=== PATIENT | male | born 1960 | race Hispanic/Latino ===

== ENCOUNTER 2024-08-09 13:00 | Inpatient (IN) | payer OTHER ==
[~2024-08-09] VITALS: Ht 188 cm; Wt 128.7 kg
--- NOTE | 2024-08-09 09:35 | EKG ---
[facility] Test Date: 2024-08-09 Test Time: 09:30:55 Pat Name: RENETTA PARIS Department: Patient [place]: [id number] Room: Gender: M Iv Technician: [id number] : 1960 Requested By: ANIKA PAYNE Order Number: [id number] Reading MD: Isaac Naqvi Measurements Intervals Bouton Rate: 69 P: 58 SC: 152 QRS: 62 QRSD: 81 T: -10 QT: 394 QTc: 422 Interpretive Statements Sinus rhythm No previous ECG available for comparison Electronically Signed On 08-11-2024 14:40:05 CDT by Isaac Naqvi Please click the below link to view image of tracing.
[2024-08-09 09:36] VITALS: BP 182/88; PULSE 68; RESP 17; TEMP 97.8
[2024-08-09 09:40] LABS: BASOPHILS # (AUTO) 0.02 K/uL (0.00-0.20); BASOPHILS % (AUTO) 0.3 % (0.0-5.0); EOSINOPHILS # (AUTO) 0.34 K/uL (0.00-0.70); HEMATOCRIT 41.3 % (42-54); IMMATURE GRANULOCYTE ABSOLUTE 0.02 K/uL (0-1); MEAN CORPUSCULAR HEMOGLOBIN 28.2 pg (27.0-33.0); MEAN CORPUSCULAR VOLUME 88.2 fL (79-99); MONOCYTES # (AUTO) 0.5 K/uL (0.1-1.0); MONOCYTES % (AUTO) 6.8 % (3.0-13.0); NEUTROPHILS # (AUTO) 3.9 K/uL (1.8-7.7); NEUTROPHILS % (AUTO) 57.6 % (40.0-77.0); PLATELET COUNT (AUTO) 189 K/uL (130-400); RED BLOOD CELL COUNT(AUTO) 4.68 MIL/uL (4.50-6.20); RED CELL DISTRIBUTION WIDTH 14.6 % (11.0-15.5); WHITE BLOOD COUNT (AUTO) 6.7 K/uL (4.8-10.8)
[2024-08-09 09:49] LABS: INR 0.98 (0.85-1.15); PROTHROMBIN TIME 10.4 SEC (9.6-11.6)
[2024-08-09 09:50] LABS: PARTIAL THROMBOPLASTIN TIME 28.5 SEC (26.3-35.5)
[2024-08-09 09:51] LABS: ALBUMIN 3.3 g/dL (3.5-5.0); BILIRUBIN,TOTAL 0.3 mg/dL (0.2-1.0); CREATININE 1.4 mg/dL (0.5-1.3); POTASSIUM 4.2 mmol/L (3.5-5.1)
[~2024-08-09 13:00] MED LIST: LABE200T7 PO; LEVO100C5 PO; LEVO5TAB13 PO; LOSA100T59 PO
[2024-08-14] VITALS (27 sets, daily range): BP systolic 142–195; BP diastolic 61–104; PULSE 68–88; RESP 15–19; TEMP 97.1–98.7; O2SAT 97
[2024-08-14] MEDS ORDERED: BUPIvacaine/PF 0.25% 30ML VIAL IJ ONE (08:00)
[2024-08-14] MEDS ORDERED: LIDOCAINE 1%-EPI 1:100,000 20 ML VIAL ONE (08:00)
[2024-08-14] MEDS: LACTATED RINGERS 1000ML 1,000 ML IV ONE (09:18)
[2024-08-14] MEDS: INVANZ 1GM+NS 50ML IVPB 50 ML IV ONE (09:19)
[2024-08-14] MEDS ORDERED: MIDAZOLAM HCL 1 MG/ML 2ML VIAL ONE (10:27)
[2024-08-14] MEDS ORDERED: LIDOCAINE PF 100MG/5ML (2%) SYRINGE 5ML ONE (10:29)
[2024-08-14] MEDS ORDERED: rocuRONium bROMide 10MG/1ML 5ML VL ONE ×4 (10:30→15:08)
[2024-08-14] MEDS ORDERED: proPOFol 10 MG/ML 20ML VIAL IV ONE (10:30)
[2024-08-14] MEDS ORDERED: ePHEDrine SULFate 50 MG/ML AMPULE ONE (11:09)
[2024-08-14] MEDS ORDERED: FENTanyl CITRate PF 50 MCG/1 ML 5ML AMP IV ONE (11:26)
[2024-08-14] MEDS: BUPIvacaine/PF 0.25% 30ML VIAL IJ ONE (11:29)
[2024-08-14] MEDS ORDERED: ketaMINE 50MG/ML SYRINGE 50 MG/ML DISP.SYRIN ONE (13:31)
[2024-08-14] MEDS: INDOCYANINE GREEN 25 MG VIAL IJ ONE (13:37)
[2024-08-14] MEDS: acetaMINOPHEN 100 ML ONE (13:37)
[2024-08-14] MEDS ORDERED: ondanSETRON 4MG INJ ONE ×2 (13:40→15:58)
[2024-08-14] MEDS ORDERED: dexaMETHasone SOD PHOSPHATE 10MG/ML 1ML VIAL ONE (13:40)
[2024-08-14] MEDS: SUGAMMADEX SODIUM 200 MG/2 ML VIAL IV ONE (16:01)
[2024-08-14] MEDS ORDERED: NEOSTIGMINE METHYLSULFATE 1MG/ML IV ONE (16:21)
[2024-08-14] MEDS ORDERED: GLYCOPYRROLATE 0.2 MG/ML 5 ML VIAL ONE (16:21)
--- NOTE | 2024-08-14 16:40 | OP ---
Operative Note: DATE OF PROCEDURE: 08/14/24 SURGEON: ANIKA PAYNE MD ACID PATROLLER: [None] ANESTHESIA: [General endotracheal anesthesia] ANESTHESIOLOGIST/TEST FIXTURE ASSEMBLER: [] PREOPERATIVE DIAGNOSIS: [Rectal cancer] POSTOPERATIVE DIAGNOSIS: [Rectal cancer] SYNOPSIS: [No metastatic disease. Appropriate mesorectal excision. Mass in upper rectum. Extensive adhesions of small bowel to anterior abdominal wall mesh.] PROCEDURE: [Robotic low anterior resection. Robotic small bowel resection with anastomosis. Robotic suture enterotomy repair of serosal enterotomy. Creation of omental flap. Intraoperative flexible sigmoidoscopy. Placement of amnion graft.] ESTIMATED BLOOD LOSS: [30 mL] INDICATIONS: [The patient is a very pleasant 64-year-old male presents to the office with a upper rectal cancer. He and his family were offered operative management. The complications, risks alternatives and benefits were discussed with the patient and family. Risks include infection, bleeding, injury to surrounding structures, need for further surgery, leak from anastomosis, need for stoma, poor bowel function, injury to the ureters, need for further procedures, and recurrence of disease. All questions were answered to their satisfaction and they all wished to proceed with the operation.] DESCRIPTION OF PROCEDURE: [The patient was brought to the operating theater and placed supine on the operating table. After appropriate general endotracheal anesthesia was administered and IV antibiotics given the patient was placed in the low lithotomy position. The abdomen was prepped and draped in appropriate sterile surgical fashion. Local anesthetic was injected in the Veress needle was used to insufflate the abdomen. Optiview technique was used into the abdomen without any injury to surrounding structures. The abdomen was explored and there was no evidence of metastatic disease. The patient had small bowel densely adhered to the umbilicus where there was mesh placed. This was lysed sharply with scissors. Four other trocars were then placed under direct visualization. An extraction site was placed in the suprapubic area. This was a Pfannenstiel incision. The wound protractor was placed. The robot was docked in the usual sterile fashion. Attention was then drawn to the small bowel where there was a serosal enterotomy which was repaired with 3-0 Vicryl suture. There was another segment of small bowel which was also noted to have serosal defects. There was also full- thickness defects. Given this this segment of small bowel was resected. The small bowel was resected where the small bowel was transected on either side of the defects using a robotic stapler and the mesentery was ligated with the vessel sealer the specimen was removed from the peritoneal cavity. A addh-us-oeuy anastomosis was created using a robotic 60 mm stapler. The entero enterotomy was closed with the V lock suture in 2 layers. This was a 3-0 V lock absorbable suture. Please note that this serosal defects and full-thickness defects were not complications but rather inherent to the dense adhesions that were lysed. This was an unavoidable process given the dense adhesions of the small bowel to the prior lead placed mesh. Attention was then drawn to the left colon was mobilized along the white line of Toldt. The left ureter was identified and preserved. The hypogastric nerve was preserved. The superior hemorrhoidal vessels were isolated and ligated. The presacral space was entered and I said dissection was taken down to the pelvic floor. The tumor was identified by the tattoo. The tumor was in the upper rectum. The mesorectum surrounding the mid rectum was dissected and a space was created for a stapler. Once this was done the stapler was utilized to amputate the rectum. This was at the mid rectum. The specimen was then amputated at the upper aspect and a side-to-end anastomosis was created using a EEA 29 stapler. The anastomosis was tested with a significant amount of pressure without any evidence of leak. An amniotic graft was placed at the anastomosis. The flexible sigmoidoscope was inserted and the anastomosis was viable and without any evidence of bleeding. There was also no leak. Firefly was utilized to assure good blood flow to the anastomosis at the time of transection as well as the time of anastomosis. A omental flap was created and placed in the pelvis. Excellent hemostasis was achieved. There were no complications. The abdomen was copiously irrigated with sterile water with the return of clear fluid. The fascia at the Pfannenstiel incision was closed with 1. PDS in a running fashion. The 12 mm trocar site was closed with 0 Vicryl. Skin incisions were closed with Monocryl. Excellent hemostasis was achieved. There were no complications. The instrument, sponge and needle count reported as correct x2 by nursing staff. All the above was discussed with family.] ANIKA PAYNE MD Aug 14, 2024 16:40
[2024-08-14] MEDS ORDERED: HYDROcodone/APAP 5/325 1 TAB TABLET PO PRN (17:00)
[2024-08-14] MEDS ORDERED: acetaMINOPHEN 325 MG TAB PO PRN (17:00)
[2024-08-14] MEDS ORDERED: ondanSETRON 4MG INJ IVP PRN (17:00)
[2024-08-14] MEDS ORDERED: INSULIN humuLIN R 100 UNIT/ML 3ML SQ PRN (17:00)
[2024-08-14] MEDS: FENTanyl CITRate PF 50 MCG/1 ML 2ML VIAL ONE (17:00)
--- NOTE | 2024-08-14 18:20 | NUR ---
ARRIVED TO UNIT PT ARRIVED FROM THE OR. PULSES STRONG BLE & BUE. LR HANGED @ 75MLS/HR PER ORDERS. SARAH ON LATERAL L SIDE SECURED WITH DRESSING AND TAPE. 50 MLS OUTPUT NOTED & DRAINED. 5 INCISIONS OPEN TO AIR ON MID ABDOMEN AREA. NO DRAINAGE NOTED. SCDS PLACED. RT IN ROOM PROVIDED IS TEACHING. 1000 READING ON IS.
[2024-08-14] MEDS: LACTATED RINGERS 1000ML 1,000 ML IV SCH (18:46)
[2024-08-14] MEDS: LoSARTan 100 MG TABLET PO SCH (19:49)
[2024-08-14] MEDS: FAMOTIDINE 20MG VIAL IV SCH (19:49)
[2024-08-14] MEDS: morPHINE 4 MG SYG IV PRN (19:50)
--- NOTE | 2024-08-14 20:10 | HP ---
[facility] HISTORY AND PHYSICAL Date of Service: Aug 14, 2024 Time of Service: 19:48 PCP: Silvia Cardona HISTORY OF PRESENT ILLNESS: This is a 64-year-old male with past medical history of hypertension , hypothyroidism and rectal cancer who underwent for status post Robotic low anterior resection. Robotic small bowel resection with anastomosis. Robotic suture enterotomy repair of serosal enterotomy. Creation of omental flap. Intraoperative flexible sigmoidoscopy. Placement of amnion graft performed by Dr.Alberto Mendez today . Seen and examined patient in room 420 awake,alert and coherent,appears comfortable,denies abdominal pain.Patient denies chills,nausea,vomiting,chest pain,palpitation and shortness of breath. was at bedside during my evaluation.No significant event reported per primary nurse at this time. Latest vital signs temperature 98.8, heart rate 86, blood pressure 170/86 saturation 98% on2 L nasal cannula. We will continue to admit patient in medical surgical floor for further medical management. REVIEW OF SYSTEMS CONSTITUTIONAL: Denies fevers, chills, or night sweats. No unintentional weight loss reported. NEUROLOGICAL: Denies headache, amaurosis fugax, motor weakness, sensory deficit, vertigo/spinning sensation, gait abnormalities, or tremors. ENT: No hearing loss, otalgia, otorrhea, rhinitis, rhinorrhea, hoarseness, or sore throat. CARDIOVASCULAR: Denies any exertional angina, dyspnea on exertion, orthopnea, paroxysmal nocturnal dyspnea, palpitations, life-threatening arrhythmias, claudication. PULMONARY: Denies any shortness of breath, cough, phlegm/sputum, hemoptysis, pleuritic chest pain. SLEEP: Denies morning headaches, daytime somnolence or napping. Denies difficulty falling asleep, staying asleep, waking from sleep. Denies knowledge of snoring. GASTROINTESTINAL: Denies any type of dysphagia to either liquids or solids. Denies nausea, vomiting, pyrosis, early satiety, abdominal pain, diarrhea, constipation, or changes in stool consistency or caliber. Denies coffee-ground emesis, hematemesis, hematochezia, or melanotic stools. GENITOURINARY: Denies frequency, urgency, nocturia, hematuria or incontinence (Storage/Irritative symptoms.) Low urinary stream, straining to void, urinary intermittency or hesitancy, splitting of the voiding stream, terminal dribbling. ENDOCRINOLOGIC: Denies polyuria, polydipsia, polyphagia or heat/cold intolerances. HEMATOLOGIC: Denies thrombophilia/previous clots, or coagulopathy/bleeding disorders. ONCOLOGIC: Denies personal history of malignancy. DERMATOLOGIC: Denies rashes or pruritus. PSYCHIATRIC: Denies any suicidal or homicidal ideation. Denies hallucinations. PAST MEDICAL HISTORY: [ Hypertension, hypothyroidism and rectal cancer ] PAST SURGICAL HISTORY: [Hernia repair, ear surgery, colonoscopy lower endoscopic ultrasound with flex sigmoid 07/25/2024 ] PAST SOCIAL HISTORY: [ Patient lives with . Patient denies alcohol tobacco and recreational drug use ] FAMILY HISTORY: [ Stroke and Alzheimer's disease, ] Coded Allergies: No Known Drug Allergies (Unverified Allergy, Unknown, 08/09/24) PHYSICAL EXAM GENERAL APPEARANCE: The patient is awake, alert, and oriented, in no acute cardiopulmonary distress. NEUROLOGICAL: Cranial nerves II-XII grossly intact. Motor is 5/5 in bilateral upper and lower extremities proximal to distal. No sensory deficits. HEENT: Face is symmetric. Pupils are equal and reactive. Extraocular movements are intact. NECK: Supple. No JVD. No thyromegaly. No submental, submandibular, pre-/postau ricular, occipital or supraclavicular lymphadenopathy. CHEST: Normal chest expansion. No Telemetry. LUNGS: Absence of any rales, rhonchi or any wheezing. CARDIOVASCULAR: Regular. S1 and S2 normal. No appreciable rubs, murmurs or gallops. ABDOMEN: Left SARAH Soft, nontender, and nondistended. There is no rebound, voluntary guarding, or rigidity. : Deferred. Calle EXTREMITIES: Non-edematous and. not cyanotic. No clubbing. Good capillary refill. SKIN: No skin breakdown. Vital Sign (Last 24 Hours) 08/14/24 08/14/24 18:00 18:45 Temp 98.8 Pulse 86 Resp 16 B/P (MAP) 170/86 Pulse Ox 98 O2 Delivery Nasal Cannula O2 Flow Rate 2.0 FiO2 24 LABS: Current Medications Medications (Trade) Dose Ordered Sig/Garrick Route PRN Reason Start Time Stop Time Status Last Admin Dose Admin Acetaminophen (TYLenol 325MG TAB) 650 mg Q4H PRN PO TEMPERATURE GREATER THAN 101 08/14/24 17:00 7/18/25 16:59 Acetaminophen/ Hydrocodone Bitart (NORco 5/325MG) 1 tab Q4H PRN PO MODERATE PAIN (4-6) 08/14/24 17:00 08/19/24 16:59 Enoxaparin Sodium (Lovenox) 40 mg DAILY SQ 08/15/24 09:00 09/14/24 08:59 Famotidine (Pepcid 20mg Vial) 20 mg BID IV 08/14/24 21:00 09/13/24 20:59 Home Med (Home Medication) (Levocetirizine Dihydrochloride 5 MG) HS PO 08/14/24 21:00 09/13/24 20:59 Insulin Human Regular (humuLIN R 100 UNIT/ML 3ML) AD PRN SQ SLIDING SCALE COVERAGE 08/14/24 17:00 09/13/24 16:59 Lactated Ringer's 1,000 ml @ 75 mls/hr [id number] IV 08/14/24 17:00 09/13/24 16:59 08/14/24 18:46 75 MLS/HR Levothyroxine Sodium (SYNTHroid 100MCG TAB) 100 mcg SYN PO 08/15/24 06:30 09/14/24 06:29 Losartan Potassium (CozAAR 100MG TAB) 100 mg HS PO 08/14/24 21:00 09/13/24 20:59 Morphine Sulfate (morPHINE 4MG SYG) 4 mg Q3H PRN IV SEVERE PAIN (7-10) 08/14/24 17:00 08/21/24 16:59 Ondansetron HCl (zoFRAN 4MG INJ) 4 mg Q4H PRN IVP NAUSEA 08/14/24 17:00 09/13/24 16:59 DIAGNOSTICS / RADIOLOGY: [ ] ASSESSMENT: Rectal cancer status post robotic small bowel resection with anastomosis and creation of omental flap POA Uncontrolled hypertension POA Hypothyroidism POA Morbid obesity POA Acute normocytic normochromic anemia POA Acute kidney injury POA PLAN: We will admit patient in medical surgical floor Patient started on clear liquid per general surgeon recommendation We will continue LR at 75 ml / hr and re evaluate We will start on Famotidine 20 mg IV bid for GI prophylaxis We will continue Lovenox 40 mg subQ daily per surgeon's recommendation for DVT prophylaxis We will replace electrolytes as needed per protocol We will start on insulin sliding scale AC & HS with hypoglycemia protocol We will add prn medication for fever,pain,cough , nausea, vomiting and elevated blood pressure Home meds already reconciled Encourage spent incentive spirometry Q hour times 10 while awake May continue oxygen supplementation to keep saturation above 92% We will request labs in am Further orders to follow depending on above results Case discussed with attending physician and came up with above treatment and plan of care. ADVANCED CARE PLANNING 1. Which of the following were discussed? Hospice Care - No Therapeutic options - Yes Advance Directives - No Other discussions - 2. Discussed with who? Patient and Alea 3. Voluntary nature of this service was explained to the patient? Yes 4. Amount of time spent - _20 5. Reviewed by Physician? (if this service was performed by NPP) Yes Patient seen and examined by me. Agree with note by POWER PLANT ASSISTANT SEE ADDITIONAL ORDERS PER CHART DISCUSSED WITH NURSING STAFF TRINA CHAND [facility] Aug 14, 2024 20:10
[2024-08-14] MEDS ORDERED: MAGNESIUM 2GM PREMIX 50ML 50 ML IV PRN (20:30)
[2024-08-14] MEDS ORDERED: PoTASSium chl 10% ELIXIR 20MEQ 20 MEQ/15 ML UDCUP PO PRN (20:30)
[2024-08-14] MEDS ORDERED: PoTASSium chloRIDE 20MEQ/100ML 100 ML IV PRN (20:30)
[2024-08-14] MEDS: (Levocetirizine Dihydrochloride 5 MG) PO SCH (21:00)
[2024-08-14] MEDS: hydrALAZine 20MG/ML VIAL IV PRN (23:03)
[2024-08-15] VITALS (8 sets, daily range): BP systolic 153–195; BP diastolic 66–97; PULSE 73–88; RESP 18–20; TEMP 97.4–98.7; O2SAT 98
[2024-08-15 04:38] LABS: BASOPHILS # (AUTO) 0.02 K/uL (0.00-0.20); BASOPHILS % (AUTO) 0.2 % (0.0-5.0); HEMATOCRIT 40.3 % (42-54); IMMATURE GRANULOCYTE ABSOLUTE 0.04 K/uL (0-1); LYMPHOCYTES # (AUTO) 1.3 K/uL (1.0-4.8); LYMPHOCYTES % (AUTO) 10.8 % (21.0-51.0); MEAN CORPUSCULAR HEMOGLOBIN 29.2 pg (27.0-33.0); MEAN CORPUSCULAR HGB CONC 33.7 g/dL (32.0-36.0); MEAN CORPUSCULAR VOLUME 86.5 fL (79-99); MONOCYTES # (AUTO) 0.8 K/uL (0.1-1.0); MONOCYTES % (AUTO) 6.3 % (3.0-13.0); NEUTROPHILS # (AUTO) 10.1 K/uL (1.8-7.7); NEUTROPHILS % (AUTO) 82.4 % (40.0-77.0); PLATELET COUNT (AUTO) 194 K/uL (130-400); RED BLOOD CELL COUNT(AUTO) 4.66 MIL/uL (4.50-6.20); RED CELL DISTRIBUTION WIDTH 14.4 % (11.0-15.5); WHITE BLOOD COUNT (AUTO) 12.3 K/uL (4.8-10.8)
[2024-08-15 04:45] LABS: CREATININE 1.6 mg/dL (0.5-1.3); POTASSIUM 3.9 mmol/L (3.5-5.1)
[2024-08-15 05:02] LABS: HEMOGLOBIN A1C 5.7 % (4.0-6.0)
[2024-08-15] MEDS: levoTHYROxine 100 MCG TABLET PO SCH (06:40)
[2024-08-15] MEDS: ENOXAPARIN SODIUM 40 MG/0.4 ML SYRINGE SQ SCH (09:23)
--- NOTE | 2024-08-15 10:01 | NUR ---
DCP:HOME Pt currently lives with rosina Echeverria [phone] who was at bedside. Pt does not have any insecurities with food, group home, and/or utilities. Pt does not have DME, home health, or provider services at this time. Pt is able to complete ADLs independently. PCP is Dr. Brendan Vega and uses [facility] for any RX needs. At DC pt will want to go home and family can assist with transportation. Addendum: 08/15/24 at 1005 by KADI BENAVIDES SS Amended: Links added.
--- NOTE | 2024-08-15 10:39 | PN ---
[facility] PROGRESS NOTE Date of Service: Aug 15, 2024 Time of Service: 10:34 SUBJECTIVE: This is a 64-year-old male with past medical history of hypertension , hypothyroidism and rectal cancer who underwent Robotic low anterior resection. Robotic small bowel resection with anastomosis. Robotic suture enterotomy repair of serosal enterotomy. Creation of omental flap. Intraoperative f lexible sigmoidoscopy. Placement of amnion graft. Procedure done by Dr.Alberto Mendez . Medical consultation requested. 08/15 patient admitted to the medical floor, patient is sitting comfortably in the chair at the time of my visit, alert oriented x3, denies chest pain, no shortness a breath, no nausea, no vomiting. BP 153/83, afebrile, saturating 98% 2 L nasal cannula, hemoglobin 13.6, hematocrit 40.3, WBC 12.3, BUN 15, creatinine 1.6, patient on IV fluids, pain medication with morphine IV as needed as well as hydrocodone p.o.. Patient remains on clear liquid diet. We will continue to follow surgical input and recommendation. A.m. lab. at bedside, updated. REVIEW OF SYSTEMS CONSTITUTIONAL: Denies fevers, chills, or night sweats. No unintentional weight loss reported. NEUROLOGICAL: Denies headache, amaurosis fugax, motor weakness, sensory deficit, vertigo/spinning sensation, gait abnormalities, or tremors. ENT: No hearing loss, otalgia, otorrhea, rhinitis, rhinorrhea, hoarseness, or sore throat. CARDIOVASCULAR: Denies any exertional angina, dyspnea on exertion, orthopnea, paroxysmal nocturnal dyspnea, palpitations, life-threatening arrhythmias, claudication. PULMONARY: Denies any shortness of breath, cough, phlegm/sputum, hemoptysis, pleuritic chest pain. SLEEP: Denies morning headaches, daytime somnolence or napping. Denies difficulty falling asleep, staying asleep, waking from sleep. Denies knowledge of snoring. GASTROINTESTINAL: Denies any type of dysphagia to either liquids or solids. Denies nausea, vomiting, pyrosis, early satiety, abdominal pain, diarrhea, constipation, or changes in stool consistency or caliber. Denies coffee-ground emesis, hematemesis, hematochezia, or melanotic stools. GENITOURINARY: Denies frequency, urgency, nocturia, hematuria or incontinence (Storage/Irritative symptoms.) Low urinary stream, straining to void, urinary intermittency or hesitancy, splitting of the voiding stream, terminal dribbling. ENDOCRINOLOGIC: Denies polyuria, polydipsia, polyphagia or heat/cold intolerances. HEMATOLOGIC: Denies thrombophilia/previous clots, or coagulopathy/bleeding d isorders. ONCOLOGIC: Denies personal history of malignancy. DERMATOLOGIC: Denies rashes or pruritus. PSYCHIATRIC: Denies any suicidal or homicidal ideation. Denies hallucinations. PHYSICAL EXAM GENERAL APPEARANCE: The patient is awake, alert, and oriented, in no acute cardiopulmonary distress. NEUROLOGICAL: Cranial nerves II-XII grossly intact. Motor is 5/5 in bilateral upper and lower extremities proximal to distal. No sensory deficits. HEENT: Face is symmetric. Pupils are equal and reactive. Extraocular movements are intact. NECK: Supple. No JVD. No thyromegaly. No submental, submandibular, pre- /postauricular, occipital or supraclavicular lymphadenopathy. CHEST: Normal chest expansion. No Telemetry. LUNGS: Absence of any rales, rhonchi or any wheezing. CARDIOVASCULAR: Regular. S1 and S2 normal. No appreciable rubs, murmurs or gallops. ABDOMEN: Left SARAH Soft, nontender, and nondistended. There is no rebound, voluntary guarding, or rigidity. : Deferred. Calle EXTREMITIES: Non-edematous and. not cyanotic. No clubbing. Good capillary refill. SKIN: No skin breakdown. Vital Signs (last 8hr) Date Time Temp Pulse Resp B/P (MAP) Pulse Ox O2 Delivery O2 Flow Rate FiO2 08/15/24 08:00 98.8 81 20 153/83 98 Nasal Cannula 2.0 24 08/15/24 04:40 98 Room Air* 0 21 08/15/24 04:00 97.3 86 20 153/92 98 Nasal Cannula 2.0 LABS: Laboratory: Test 08/15/24 05:21 08/15/24 04:20 Range/Units Whole Blood Glucose 124 H 70-110 MG/DL White Blood Count 12.3 H 4.8-10.8 K/uL Red Blood Count 4.66 4.50-6.20 MIL/uL Hemoglobin 13.6 L 14.0-18.0 g/dL Hematocrit 40.3 L 42-54 % Mean Corpuscular Volume 86.5 79-99 fL Mean Corpuscular Hemoglobin 29.2 27.0-33.0 pg Mean Corpuscular Hemoglobin Concent 33.7 32.0-36.0 g/dL Red Cell Distribution Width 14.4 11.0-15.5 % Platelet Count 194 130-400 K/uL Mean Platelet Volume 9.6 7.5-10.5 fL Immature Granulocyte % (Auto) 0.3 0-1 % Neutrophils (%) (Auto) 82.4 H 40.0-77.0 % Lymphocytes (%) (Auto) 10.8 L 21.0-51.0 % Monocytes (%) (Auto) 6.3 3.0-13.0 % Eosinophils (%) (Auto) 0.0 0.0-8.0 % Basophils (%) (Auto) 0.2 0.0-5.0 % Neutrophils # (Auto) 10.1 H 1.8-7.7 K/uL Lymphocytes # (Auto) 1.3 1.0-4.8 K/uL Monocytes # (Auto) 0.8 0.1-1.0 K/uL Eosinophils # (Auto) 0.00 0.00-0.70 K/uL Basophils # (Auto) 0.02 0.00-0.20 K/uL Absolute Immature Granulocyte (auto 0.04 0-1 K/uL Nucleated Red Blood Cells 0.0 0.0-0.19 % Sodium Level 137 136-145 mmol/L Potassium Level 3.9 3.5-5.1 mmol/L Chloride Level 103 101-111 mmol/L Carbon Dioxide Level 29 21-32 mmol/L Blood Urea Nitrogen 15 7-18 mg/dL Creatinine 1.6 H 0.5-1.3 mg/dL Glomerular Filtration Rate Calc 47 >90 mL/min Random Glucose 135 H 70-105 mg/dL Hemoglobin A1c 5.7 4.0-6.0 % Estimated Average Glucose (eAG) 117 70-126 mg/dL Total Calcium 9.0 8.5-10.1 mg/dL Current Medications Medications (Trade) Dose Ordered Sig/Garrick Route PRN Reason Start Time Stop Time Status Last Admin Dose Admin Acetaminophen (TYLenol 325MG TAB) 650 mg Q4H PRN PO TEMPERATURE GREATER THAN 101 08/14/24 17:00 09/13/24 16:59 Acetaminophen/ Hydrocodone Bitart (NORco 5/325MG) 1 tab Q4H PRN PO MODERATE PAIN (4-6) 08/14/24 17:00 08/19/24 16:59 Enoxaparin Sodium (Lovenox) 40 mg DAILY SQ 08/15/24 09:00 09/14/24 08:59 08/15/24 09:23 40 MG Famotidine (Pepcid 20mg Vial) 20 mg BID IV 08/14/24 21:00 09/13/24 20:59 08/15/24 09:23 20 MG Home Med (Home Medication) (Levocetirizine Dihydrochloride 5 MG) HS PO 08/14/24 21:00 09/13/24 20:59 Hydralazine HCl (APRESOLine 20MG INJ) 10 mg Q6H PRN IV ADMINISTER FOR SBP > 160 08/14/24 20:00 09/13/24 19:59 08/14/24 23:03 10 MG Insulin Human Regular (humuLIN R 100 UNIT/ML 3ML) AD PRN SQ SLIDING SCALE COVERAGE 08/14/24 17:00 09/13/24 16:59 Lactated Ringer's 1,000 ml @ 75 mls/hr [id number] IV 08/14/24 17:00 09/13/24 16:59 08/14/24 18:46 75 MLS/HR Levothyroxine Sodium (SYNTHroid 100MCG TAB) 100 mcg SYN PO 08/15/24 06:30 09/14/24 06:29 08/15/24 06:40 100 MCG Losartan Potassium (CozAAR 100MG TAB) 100 mg HS PO 08/14/24 21:00 09/13/24 20:59 08/14/24 19:49 100 MG Magnesium Sulfate 50 ml @ 0 mls/hr PROTOCOL PRN IV OTHER [SEE ORDER COMMENTS] 08/14/24 20:30 09/13/24 20:29 Morphine Sulfate (morPHINE 4MG SYG) 4 mg Q3H PRN IV SEVERE PAIN (7-10) 08/14/24 17:00 08/21/24 16:59 08/15/24 06:45 4 MG Ondansetron HCl (zoFRAN 4MG INJ) 4 mg Q4H PRN IVP NAUSEA 08/14/24 17:00 09/13/24 16:59 Potassium Chloride 100 ml @ 100 mls/hr AD PRN IV POTASSIUM PROTOCOL 08/14/24 20:30 09/13/24 20:29 Potassium Chloride (K-Dur/Klor-Con 20meq) 20 meq AD PRN PO POTASSIUM PROTOCOL 08/14/24 20:30 09/13/24 20:29 Potassium Chloride (KCl 10% Elixir 20meq/15ml) 20 meq AD PRN PO POTASSIUM PROTOCOL 08/14/24 20:30 09/13/24 20:29 DIAGNOSTICS / RADIOLOGY: [ ] ASSESSMENT: Rectal cancer status post robotic small bowel resection with anastomosis and creation of omental flap POA Uncontrolled hypertension POA Hypothyroidism POA Morbid obesity POA Acute normocytic normochromic anemia POA Acute kidney injury POA PLAN: Remains admitted to the medical floor Patient to continue on clear liquid per general surgeon recommendation Continue supportive care with IV fluid Continue on Famotidine 20 mg IV bid for GI prophylaxis Continue Lovenox 40 mg subQ daily per surgeon's recommendation for DVT prophylaxis We will replace electrolytes as needed per protocol Continue on insulin sliding scale AC & HS with hypoglycemia protocol Continue add prn medication for fever,pain,cough , nausea, vomiting and elevated blood pressure Home meds already reconciled Encourage spent incentive spirometry Q hour times 10 while awake May continue oxygen supplementation to keep saturation above 92% We will request labs in am Further orders to follow depending on above results Plan of action discussed, all questions answered. SIMA MCDOWELL MD Aug 15, 2024 10:39
--- NOTE | 2024-08-15 11:58 | PN ---
[facility] PROGRESS NOTE Date of Visit: Aug 15, 2024 Time of Visit: 11:58 Events / Notes: [ ] Review of Systems: CONSTITUTIONAL: No malaise or change in sensation of wellbeing. ENMT: No rhinorrhea, otorrhea, sinus pain, ear ache. CARDIOVASCULAR: No angina, palpitations, orthopnea or paroxysmal dyspnea. RESPIRATORY: No SOB. GASTROINTESTINAL: No abdominal pain, nausea, vomiting, diarrhea, hematemesis, melena or change in the patient's habitual bowel movements consistency/number. GENITOURINARY: No dysuria, hematuria or change in bladder continence. MUSCULOSKELETAL: No new muscle pain or decrease in muscular strength. No new joint swelling, redness or tenderness. SKIN: No new rash. Physical Exam: GEN: Awake, alert, oriented in person, time and place, and in no acute distress. HEENT: No sinus tenderness. Tympanic membranes were not examined. No rhinorrhea. Oral pharyngeal mucosa is pink, moist and within normal limits. Neck is supple with no cervical lymphadenopathy, thyromegaly or JVD. CHEST: Inspection, palpation and percussion of the chest were unremarkable. Lung auscultation revealed normal breath sounds bilaterally. CARDIAC: PMI is within normal limits. Heart sounds are regular. Normal S1, S2. No gallop or murmur. ABD: Soft, non-tender and not distended. No peritoneal signs on palpation. No organomegaly. Normal bowel sounds. EXT: No cyanosis or clubbing. No edema. SKIN: Intact. No rashes. JOINTS: No evidence of synovitis or acute arthritis. NEURO: Alert and oriented to name, place and person. Cranial nerve examination is unremarkable. No focal motor deficits. Normal speech. Gait is normal. Strength is normal. Vital Signs (last 8hr) Date Time Temp Pulse Resp B/P (MAP) Pulse Ox O2 Delivery O2 Flow Rate FiO2 08/15/24 08:00 98.8 81 20 153/83 98 Nasal Cannula 2.0 24 08/15/24 04:40 98 Room Air* 0 21 08/15/24 04:00 97.3 86 20 153/92 98 Nasal Cannula 2.0 Laboratory: [ ] Laboratory: Test 08/15/24 10:54 08/15/24 04:20 Range/Units Whole Blood Glucose 115 H 70-110 MG/DL Bedside Glucose Comment Notified Nurse White Blood Count 12.3 H 4.8-10.8 K/uL Red Blood Count 4.66 4.50-6.20 MIL/uL Hemoglobin 13.6 L 14.0-18.0 g/dL Hematocrit 40.3 L 42-54 % Mean Corpuscular Volume 86.5 79-99 fL Mean Corpuscular Hemoglobin 29.2 27.0-33.0 pg Mean Corpuscular Hemoglobin Concent 33.7 32.0-36.0 g/dL Red Cell Distribution Width 14.4 11.0-15.5 % Platelet Count 194 130-400 K/uL Mean Platelet Volume 9.6 7.5-10.5 fL Immature Granulocyte % (Auto) 0.3 0-1 % Neutrophils (%) (Auto) 82.4 H 40.0-77.0 % Lymphocytes (%) (Auto) 10.8 L 21.0-51.0 % Monocytes (%) (Auto) 6.3 3.0-13.0 % Eosinophils (%) (Auto) 0.0 0.0-8.0 % Basophils (%) (Auto) 0.2 0.0-5.0 % Neutrophils # (Auto) 10.1 H 1.8-7.7 K/uL Lymphocytes # (Auto) 1.3 1.0-4.8 K/uL Monocytes # (Auto) 0.8 0.1-1.0 K/uL Eosinophils # (Auto) 0.00 0.00-0.70 K/uL Basophils # (Auto) 0.02 0.00-0.20 K/uL Absolute Immature Granulocyte (auto 0.04 0-1 K/uL Nucleated Red Blood Cells 0.0 0.0-0.19 % Sodium Level 137 136-145 mmol/L Potassium Level 3.9 3.5-5.1 mmol/L Chloride Level 103 101-111 mmol/L Carbon Dioxide Level 29 21-32 mmol/L Blood Urea Nitrogen 15 7-18 mg/dL Creatinine 1.6 H 0.5-1.3 mg/dL Glomerular Filtration Rate Calc 47 >90 mL/min Random Glucose 135 H 70-105 mg/dL Hemoglobin A1c 5.7 4.0-6.0 % Estimated Average Glucose (eAG) 117 70-126 mg/dL Total Calcium 9.0 8.5-10.1 mg/dL Current Medications Medications (Trade) Dose Ordered Sig/Garrick Route PRN Reason Start Time Stop Time Status Last Admin Dose Admin Acetaminophen (TYLenol 325MG TAB) 650 mg Q4H PRN PO TEMPERATURE GREATER THAN 101 08/14/24 17:00 09/13/24 16:59 Acetaminophen/ Hydrocodone Bitart (NORco 5/325MG) 1 tab Q4H PRN PO MODERATE PAIN (4-6) 08/14/24 17:00 08/19/24 16:59 Enoxaparin Sodium (Lovenox) 40 mg DAILY SQ 08/15/24 09:00 09/14/24 08:59 08/15/24 09:23 40 MG Famotidine (Pepcid 20mg Vial) 20 mg BID IV 08/14/24 21:00 09/13/24 20:59 08/15/24 09:23 20 MG Home Med (Home Medication) (Levocetirizine Dihydrochloride 5 MG) HS PO 08/14/24 21:00 09/13/24 20:59 Hydralazine HCl (APRESOLine 20MG INJ) 10 mg Q6H PRN IV ADMINISTER FOR SBP > 160 08/14/24 20:00 09/13/24 19:59 08/14/24 23:03 10 MG Insulin Human Regular (humuLIN R 100 UNIT/ML 3ML) AD PRN SQ SLIDING SCALE COVERAGE 08/14/24 17:00 09/13/24 16:59 Lactated Ringer's 1,000 ml @ 75 mls/hr [id number] IV 08/14/24 17:00 09/13/24 16:59 08/14/24 18:46 75 MLS/HR Levothyroxine Sodium (SYNTHroid 100MCG TAB) 100 mcg SYN PO 08/15/24 06:30 09/14/24 06:29 08/15/24 06:40 100 MCG Losartan Potassium (CozAAR 100MG TAB) 100 mg HS PO 08/14/24 21:00 09/13/24 20:59 08/14/24 19:49 100 MG Magnesium Sulfate 50 ml @ 0 mls/hr PROTOCOL PRN IV OTHER [SEE ORDER COMMENTS] 08/14/24 20:30 09/13/24 20:29 Morphine Sulfate (morPHINE 4MG SYG) 4 mg Q3H PRN IV SEVERE PAIN (7-10) 08/14/24 17:00 08/21/24 16:59 08/15/24 06:45 4 MG Ondansetron HCl (zoFRAN 4MG INJ) 4 mg Q4H PRN IVP NAUSEA 08/14/24 17:00 09/13/24 16:59 Potassium Chloride 100 ml @ 100 mls/hr AD PRN IV POTASSIUM PROTOCOL 08/14/24 20:30 09/13/24 20:29 Potassium Chloride (K-Dur/Klor-Con 20meq) 20 meq AD PRN PO POTASSIUM PROTOCOL 08/14/24 20:30 09/13/24 20:29 Potassium Chloride (KCl 10% Elixir 20meq/15ml) 20 meq AD PRN PO POTASSIUM PROTOCOL 08/14/24 20:30 09/13/24 20:29 Diagnostics / Radiology: [COPY/PASTE HERE IF NO REPORTS PLEASE DELETE SECTION] Assessment: [ ] Plan: [ ] TERENCE LIMA [facility] Aug 15, 2024 11:58
--- NOTE | 2024-08-15 15:47 | NUR ---
Calle catheter is removed and abdominal binder placed.
[2024-08-15] MEDS: metoCLOPRAmide 10 MG/2 ML VIAL IVP ONE (17:18)
[2024-08-15] MEDS: ondanSETRON 4MG INJ IVP ONE (17:18)
[2024-08-15] MEDS: dexaMETHasone SOD PHOSPHATE 4 MG/ML 1ML VIAL IV ONE (17:18)
[2024-08-16] VITALS: BP 147/82; PULSE 88; RESP 18; TEMP 98.7
[2024-08-16 04:00] VITALS: BP 157/98; PULSE 90; RESP 20; TEMP 98.2
[2024-08-16 04:37] LABS: BASOPHILS # (AUTO) 0.02 K/uL (0.00-0.20); BASOPHILS % (AUTO) 0.2 % (0.0-5.0); HEMATOCRIT 41.3 % (42-54); IMMATURE GRANULOCYTE ABSOLUTE 0.08 K/uL (0-1); LYMPHOCYTES # (AUTO) 1.5 K/uL (1.0-4.8); LYMPHOCYTES % (AUTO) 12.2 % (21.0-51.0); MEAN CORPUSCULAR HEMOGLOBIN 28.8 pg (27.0-33.0); MEAN CORPUSCULAR HGB CONC 33.7 g/dL (32.0-36.0); MEAN CORPUSCULAR VOLUME 85.5 fL (79-99); MONOCYTES # (AUTO) 0.6 K/uL (0.1-1.0); MONOCYTES % (AUTO) 4.8 % (3.0-13.0); NEUTROPHILS # (AUTO) 10.1 K/uL (1.8-7.7); NEUTROPHILS % (AUTO) 82.1 % (40.0-77.0); PLATELET COUNT (AUTO) 202 K/uL (130-400); RED BLOOD CELL COUNT(AUTO) 4.83 MIL/uL (4.50-6.20); RED CELL DISTRIBUTION WIDTH 15.2 % (11.0-15.5); WHITE BLOOD COUNT (AUTO) 12.3 K/uL (4.8-10.8)
[2024-08-16 04:51] LABS: BILIRUBIN,TOTAL 0.6 mg/dL (0.2-1.0); CREATININE 1.4 mg/dL (0.5-1.3); MAGNESIUM 1.9 mg/dL (1.80-2.40); POTASSIUM 3.8 mmol/L (3.5-5.1); TOTAL PROTEIN, SERUM 7.1 g/dL (6.0-8.3)
[2024-08-16 08:00] VITALS: BP 161/85; PULSE 83; RESP 20; TEMP 98.4; O2SAT 99
[2024-08-16] MEDS: PoTASSium chloRIDE 20MEQ ER 20 MEQ ERTAB PO PRN (11:18)
--- NOTE | 2024-08-16 11:27 | PN ---
COLOR[facility] PROGRESS NOTE Date of Visit: Aug 16, 2024 Time of Visit: 11:27 Events / Notes: [ ] Review of Systems: CONSTITUTIONAL: No malaise or change in sensation of wellbeing. ENMT: No rhinorrhea, otorrhea, sinus pain, ear ache. CARDIOVASCULAR: No angina, palpitations, orthopnea or paroxysmal dyspnea. RESPIRATORY: No SOB. GASTROINTESTINAL: No abdominal pain, nausea, vomiting, diarrhea, hematemesis, melena or change in the patient's habitual bowel movements consistency/number. GENITOURINARY: No dysuria, hematuria or change in bladder continence. MUSCULOSKELETAL: No new muscle pain or decrease in muscular strength. No new joint swelling, redness or tenderness. SKIN: No new rash. Physical Exam: GEN: Awake, alert, oriented in person, time and place, and in no acute distress. HEENT: No sinus tenderness. Tympanic membranes were not examined. No rhinorrhea. Oral pharyngeal mucosa is pink, moist and within normal limits. Neck is supple with no cervical lymphadenopathy, thyromegaly or JVD. CHEST: Inspection, palpation and percussion of the chest were unremarkable. Lung auscultation revealed normal breath sounds bilaterally. CARDIAC: PMI is within normal limits. Heart sounds are regular. Normal S1, S2. No gallop or murmur. ABD: Soft, non-tender and not distended. No peritoneal signs on palpation. No organomegaly. Normal bowel sounds. EXT: No cyanosis or clubbing. No edema. SKIN: Intact. No rashes. JOINTS: No evidence of synovitis or acute arthritis. NEURO: Alert and oriented to name, place and person. Cranial nerve examination is unremarkable. No focal motor deficits. Normal speech. Gait is normal. Strength is normal. Vital Signs (last 8hr) Date Time Temp Pulse Resp B/P (MAP) Pulse Ox O2 Delivery O2 Flow Rate FiO2 08/16/24 08:00 98.4 83 20 161/85 99 Room Air 21 08/16/24 04:00 98.2 90 20 157/98 100 Room Air Laboratory: [ ] Laboratory: Test 08/16/24 10:50 08/16/24 04:21 08/15/24 04:20 Range/Units Whole Blood Glucose 117 H 70-110 MG/DL Bedside Glucose Comment Notified Nurse White Blood Count 12.3 H 4.8-10.8 K/uL Red Blood Count 4.83 4.50-6.20 MIL/uL Hemoglobin 13.9 L 14.0-18.0 g/dL Hematocrit 41.3 L 42-54 % Mean Corpuscular Volume 85.5 79-99 fL Mean Corpuscular Hemoglobin 28.8 27.0-33.0 pg Mean Corpuscular Hemoglobin Concent 33.7 32.0-36.0 g/dL Red Cell Distribution Width 15.2 11.0-15.5 % Platelet Count 202 130-400 K/uL Mean Platelet Volume 9.5 7.5-10.5 fL Immature Granulocyte % (Auto) 0.7 0-1 % Neutrophils (%) (Auto) 82.1 H 40.0-77.0 % Lymphocytes (%) (Auto) 12.2 L 21.0-51.0 % Monocytes (%) (Auto) 4.8 3.0-13.0 % Eosinophils (%) (Auto) 0.0 0.0-8.0 % Basophils (%) (Auto) 0.2 0.0-5.0 % Neutrophils # (Auto) 10.1 H 1.8-7.7 K/uL Lymphocytes # (Auto) 1.5 1.0-4.8 K/uL Monocytes # (Auto) 0.6 0.1-1.0 K/uL Eosinophils # (Auto) 0.00 0.00-0.70 K/uL Basophils # (Auto) 0.02 0.00-0.20 K/uL Absolute Immature Granulocyte (auto 0.08 0-1 K/uL Nucleated Red Blood Cells 0.0 0.0-0.19 % Sodium Level 140 136-145 mmol/L Potassium Level 3.8 3.5-5.1 mmol/L Chloride Level 104 101-111 mmol/L Carbon Dioxide Level 25 21-32 mmol/L Blood Urea Nitrogen 16 7-18 mg/dL Creatinine 1.4 H 0.5-1.3 mg/dL Glomerular Filtration Rate Calc 55 >90 mL/min Random Glucose 128 H 70-105 mg/dL Total Calcium 9.5 8.5-10.1 mg/dL Magnesium Level 1.90 1.80-2.40 mg/dL Total Bilirubin 0.6 0.2-1.0 mg/dL Aspartate Amino Transf (AST/SGOT) 16 10-37 U/L Alanine Aminotransferase (ALT/SGPT) 22 12-78 U/L Alkaline Phosphatase 68 50-136 U/L Total Protein 7.1 6.0-8.3 g/dL Albumin 3.0 L 3.5-5.0 g/dL Hemoglobin A1c 5.7 4.0-6.0 % Estimated Average Glucose (eAG) 117 70-126 mg/dL Current Medications Medications (Trade) Dose Ordered Sig/Garrick Route PRN Reason Start Time Stop Time Status Last Admin Dose Admin Acetaminophen (TYLenol 325MG TAB) 650 mg Q4H PRN PO TEMPERATURE GREATER THAN 101 08/14/24 17:00 09/13/24 16:59 Acetaminophen/ Hydrocodone Bitart (NORco 5/325MG) 1 tab Q4H PRN PO MODERATE PAIN (4-6) 08/14/24 17:00 08/19/24 16:59 Enoxaparin Sodium (Lovenox) 40 mg DAILY SQ 08/15/24 09:00 09/14/24 08:59 08/15/24 09:23 40 MG Famotidine (Pepcid 20mg Vial) 20 mg BID IV 08/14/24 21:00 09/13/24 20:59 08/16/24 11:17 20 MG Home Med (Home Medication) (Levocetirizine Dihydrochloride 5 MG) HS PO 08/14/24 21:00 09/13/24 20:59 Hydralazine HCl (APRESOLine 20MG INJ) 10 mg Q6H PRN IV ADMINISTER FOR SBP > 160 08/14/24 20:00 09/13/24 19:59 08/15/24 19:28 10 MG Insulin Human Regular (humuLIN R 100 UNIT/ML 3ML) AD PRN SQ SLIDING SCALE COVERAGE 08/14/24 17:00 09/13/24 16:59 Lactated Ringer's 1,000 ml @ 75 mls/hr [id number] IV 08/14/24 17:00 09/13/24 16:59 08/14/24 18:46 75 MLS/HR Levothyroxine Sodium (SYNTHroid 100MCG TAB) 100 mcg SYN PO 08/15/24 06:30 09/14/24 06:29 08/16/24 05:59 100 MCG Losartan Potassium (CozAAR 100MG TAB) 100 mg HS PO 08/14/24 21:00 09/13/24 20:59 08/15/24 21:09 100 MG Magnesium Sulfate 50 ml @ 0 mls/hr PROTOCOL PRN IV OTHER [SEE ORDER COMMENTS] 08/14/24 20:30 09/13/24 20:29 Morphine Sulfate (morPHINE 4MG SYG) 4 mg Q3H PRN IV SEVERE PAIN (7-10) 08/14/24 17:00 08/21/24 16:59 08/15/24 06:45 4 MG Ondansetron HCl (zoFRAN 4MG INJ) 4 mg Q4H PRN IVP NAUSEA 08/14/24 17:00 09/13/24 16:59 Potassium Chloride 100 ml @ 100 mls/hr AD PRN IV POTASSIUM PROTOCOL 08/14/24 20:30 09/13/24 20:29 Potassium Chloride (K-Dur/Klor-Con 20meq) 20 meq AD PRN PO POTASSIUM PROTOCOL 08/14/24 20:30 09/13/24 20:29 08/16/24 11:18 20 MEQ Potassium Chloride (KCl 10% Elixir 20meq/15ml) 20 meq AD PRN PO POTASSIUM PROTOCOL 08/14/24 20:30 09/13/24 20:29 Diagnostics / Radiology: [COPY/PASTE HERE IF NO REPORTS PLEASE DELETE SECTION] Assessment: [ ] Plan: [ ] TERENCE LIMA ASSISTANT PROGRAM DIRECTOR Aug 16, 2024 11:27
--- NOTE | 2024-08-16 11:37 | NUR ---
Fabián Jasmine, [employer] Nurse practitioner at bedside. Reviewed plan of care with resident and discharge plan. Anticipate discharge to home some time later today.
[2024-08-16 12:08] VITALS: BP 136/75; PULSE 82; RESP 18; TEMP 98.6
--- NOTE | 2024-08-16 13:30 | NUR ---
Order received and spoke to patient. Patient has been walkig in halls no signs of imbalance. DC from PT.
--- NOTE | 2024-08-16 14:00 | NUR ---
DISCHARGE NOTE IV and ID bands removed. Discharge instructions, medications, and follow up apointments reviewed and read with patient and family at bedside. Personal belongings packed and taken with family to private vehicle. Teaching performed on SARAH drain care. Patient verbalized understanding and demonstrated appropriate technique. Abdominal binder in place. Patient taken down to private vehicle via wheelchair.
--- NOTE | 2024-08-16 17:03 | PN ---
[facility] PROGRESS NOTE Date of Service: Aug 16, 2024 Time of Service: 16:55 SUBJECTIVE: This is a 64-year-old male with past medical history of hypertension , hypothyroidism and rectal cancer who underwent Robotic low anterior resection. Robotic small bowel resection with anastomosis. Robotic suture enterotomy repair of serosal enterotomy. Creation of omental flap. Intraoperative f lexible sigmoidoscopy. Placement of amnion graft. Procedure done by Dr.Alberto Mendez . Medical consultation requested. 08/15 patient admitted to the medical floor, patient is sitting comfortably in the chair at the time of my visit, alert oriented x3, denies chest pain, no shortness a breath, no nausea, no vomiting. BP 153/83, afebrile, saturating 98% 2 L nasal cannula, hemoglobin 13.6, hematocrit 40.3, WBC 12.3, BUN 15, creatinine 1.6, patient on IV fluids, pain medication with morphine IV as needed as well as hydrocodone p.o.. Patient remains on clear liquid diet. We will continue to follow surgical input and recommendation. A.m. lab. at bedside, updated. 08/16 No acute events overnight. Pt denies flatus or BM but is tolerating PO di et. Has no complaints. SARAH drain still with high output, approximately 200 cc in 24 hours. Creatinine elevated at 1.4 but is at baseline, remainder of labs unremarkable. REVIEW OF SYSTEMS 12 point ROS negative unless noted in HPI PHYSICAL EXAM GENERAL APPEARANCE: The patient is awake, alert, and oriented, in no acute cardiopulmonary distress. NEUROLOGICAL: Cranial nerves II-XII grossly intact. Motor is 5/5 in bilateral upper and lower extremities proximal to distal. No sensory deficits. HEENT: Face is symmetric. Pupils are equal and reactive. Extraocular movements are intact. NECK: Supple. No JVD. No thyromegaly. No submental, submandibular, pre- /postauricular, occipital or supraclavicular lymphadenopathy. CHEST: Normal chest expansion. No Telemetry. LUNGS: Absence of any rales, rhonchi or any wheezing. CARDIOVASCULAR: Regular. S1 and S2 normal. No appreciable rubs, murmurs or gallops. ABDOMEN: Left SARAH Soft, nontender, and nondistended. There is no rebound, voluntary guarding, or rigidity. : Deferred. Calle EXTREMITIES: Non-edematous and. not cyanotic. No clubbing. Good capillary refill. SKIN: No skin breakdown. Vital Signs (last 8hr) Date Time Temp Pulse Resp B/P (MAP) Pulse Ox O2 Delivery O2 Flow Rate FiO2 08/16/24 12:08 98.6 82 18 136/75 97 Room Air 21 LABS: Laboratory: Test 08/16/24 10:50 08/16/24 04:21 08/15/24 04:20 Range/Units Whole Blood Glucose 117 H 70-110 MG/DL Bedside Glucose Comment Notified Nurse White Blood Count 12.3 H 4.8-10.8 K/uL Red Blood Count 4.83 4.50-6.20 MIL/uL Hemoglobin 13.9 L 14.0-18.0 g/dL Hematocrit 41.3 L 42-54 % Mean Corpuscular Volume 85.5 79-99 fL Mean Corpuscular Hemoglobin 28.8 27.0-33.0 pg Mean Corpuscular Hemoglobin Concent 33.7 32.0-36.0 g/dL Red Cell Distribution Width 15.2 11.0-15.5 % Platelet Count 202 130-400 K/uL Mean Platelet Volume 9.5 7.5-10.5 fL Immature Granulocyte % (Auto) 0.7 0-1 % Neutrophils (%) (Auto) 82.1 H 40.0-77.0 % Lymphocytes (%) (Auto) 12.2 L 21.0-51.0 % Monocytes (%) (Auto) 4.8 3.0-13.0 % Eosinophils (%) (Auto) 0.0 0.0-8.0 % Basophils (%) (Auto) 0.2 0.0-5.0 % Neutrophils # (Auto) 10.1 H 1.8-7.7 K/uL Lymphocytes # (Auto) 1.5 1.0-4.8 K/uL Monocytes # (Auto) 0.6 0.1-1.0 K/uL Eosinophils # (Auto) 0.00 0.00-0.70 K/uL Basophils # (Auto) 0.02 0.00-0.20 K/uL Absolute Immature Granulocyte (auto 0.08 0-1 K/uL Nucleated Red Blood Cells 0.0 0.0-0.19 % Sodium Level 140 136-145 mmol/L Potassium Level 3.8 3.5-5.1 mmol/L Chloride Level 104 101-111 mmol/L Carbon Dioxide Level 25 21-32 mmol/L Blood Urea Nitrogen 16 7-18 mg/dL Creatinine 1.4 H 0.5-1.3 mg/dL Glomerular Filtration Rate Calc 55 >90 mL/min Random Glucose 128 H 70-105 mg/dL Total Calcium 9.5 8.5-10.1 mg/dL Magnesium Level 1.90 1.80-2.40 mg/dL Total Bilirubin 0.6 0.2-1.0 mg/dL Aspartate Amino Transf (AST/SGOT) 16 10-37 U/L Alanine Aminotransferase (ALT/SGPT) 22 12-78 U/L Alkaline Phosphatase 68 50-136 U/L Total Protein 7.1 6.0-8.3 g/dL Albumin 3.0 L 3.5-5.0 g/dL Hemoglobin A1c 5.7 4.0-6.0 % Estimated Average Glucose (eAG) 117 70-126 mg/dL Current Medications Medications (Trade) Dose Ordered Sig/Garrick Route PRN Reason Start Time Stop Time Status Last Admin Dose Admin Acetaminophen (TYLenol 325MG TAB) 650 mg Q4H PRN PO TEMPERATURE GREATER THAN 101 08/14/24 17:00 08/16/24 14:32 DC Acetaminophen/ Hydrocodone Bitart (NORco 5/325MG) 1 tab Q4H PRN PO MODERATE PAIN (4-6) 08/14/24 17:00 08/16/24 14:32 DC Enoxaparin Sodium (Lovenox) 40 mg DAILY SQ 08/15/24 09:00 08/16/24 14:32 DC 08/15/24 09:23 40 MG Famotidine (Pepcid 20mg Vial) 20 mg BID IV 08/14/24 21:00 08/16/24 14:32 DC 08/16/24 11:17 20 MG Home Med (Home Medication) (Levocetirizine Dihydrochloride 5 MG) HS PO 08/14/24 21:00 08/16/24 14:32 DC Hydralazine HCl (APRESOLine 20MG INJ) 10 mg Q6H PRN IV ADMINISTER FOR SBP > 160 08/14/24 20:00 08/16/24 14:32 DC 08/15/24 19:28 10 MG Insulin Human Regular (humuLIN R 100 UNIT/ML 3ML) AD PRN SQ SLIDING SCALE COVERAGE 08/14/24 17:00 08/16/24 14:32 DC Lactated Ringer's 1,000 ml @ 75 mls/hr [id number] IV 08/14/24 17:00 08/16/24 14:32 DC 08/14/24 18:46 75 MLS/HR Levothyroxine Sodium (SYNTHroid 100MCG TAB) 100 mcg SYN PO 08/15/24 06:30 08/16/24 14:32 DC 08/16/24 05:59 100 MCG Losartan Potassium (CozAAR 100MG TAB) 100 mg HS PO 08/14/24 21:00 08/16/24 14:32 DC 08/15/24 21:09 100 MG Magnesium Sulfate 50 ml @ 0 mls/hr PROTOCOL PRN IV OTHER [SEE ORDER COMMENTS] 08/14/24 20:30 08/16/24 14:32 DC Morphine Sulfate (morPHINE 4MG SYG) 4 mg Q3H PRN IV SEVERE PAIN (7-10) 08/14/24 17:00 08/16/24 14:32 DC 08/15/24 06:45 4 MG Ondansetron HCl (zoFRAN 4MG INJ) 4 mg Q4H PRN IVP NAUSEA 08/14/24 17:00 08/16/24 14:32 DC Potassium Chloride 100 ml @ 100 mls/hr AD PRN IV POTASSIUM PROTOCOL 08/14/24 20:30 08/16/24 14:32 DC Potassium Chloride (K-Dur/Klor-Con 20meq) 20 meq AD PRN PO POTASSIUM PROTOCOL 08/14/24 20:30 08/16/24 14:32 DC 08/16/24 11:18 20 MEQ Potassium Chloride (KCl 10% Elixir 20meq/15ml) 20 meq AD PRN PO POTASSIUM PROTOCOL 08/14/24 20:30 08/16/24 14:32 DC DIAGNOSTICS / RADIOLOGY: [ ] ASSESSMENT: Rectal cancer status post robotic small bowel resection with anastomosis and creation of omental flap POA Uncontrolled hypertension POA Hypothyroidism POA Morbid obesity POA Acute normocytic normochromic anemia POA Acute kidney injury POA PLAN: Continue supportive care with IV fluid Continue on Famotidine 20 mg IV bid for GI prophylaxis Continue Lovenox 40 mg subQ daily per surgeon's recommendation for DVT prophylaxis We will replace electrolytes as needed per protocol Continue on insulin sliding scale AC & HS with hypoglycemia protocol Continue add prn medication for fever,pain,cough , nausea, vomiting and elevated blood pressure Home meds already reconciled Encourage spent incentive spirometry Q hour times 10 while awake May continue oxygen supplementation to keep saturation above 92% We will request labs in am Further orders to follow depending on above results Disposition: Clear for discharge from medicine standpoint, thank you for this consult, will continue to follow while inpatient ZAID BUTTERFIELD MD Aug 16, 2024 17:03
--- NOTE | 2024-08-19 10:48 | NUR ---
Transitional Phone Call Spoke with patient, states "I'm alright. I'm doing real fine." [facility] is continuing to take home medications as instructed, no questions or concerns with medications. [facility] has scheduled the follow up appointment with surgeon - Dr. Mendez for SARAH removal on 08/20/2024 at 1400; [facility] will set up the follow up appointment with PCP - Dr. Brendan Vega. [facility] did not have a bowel movement yesterday 08/18/2024, hopefully today he will; referred to PCP or surgeon. No further questions or concerns at this time.
== END 2024-08-16 13:57 | disposition home or self-care (01) | DRG 330 ==
LOC: DAHIP 08-14 08:28 → 4CH 08-14 18:00
PROVIDERS: ADMIT Internal Medicine; ATTEND Internal Medicine
PROC: 0DN84ZZ Release Small Intestine, Percutaneous Endoscopic Approach (ICD-10-PCS; 2024-08-14)
PROC: 0DBP4ZZ Excision of Rectum, Percutaneous Endoscopic Approach (ICD-10-PCS; 2024-08-14)
PROC: 8E0W4CZ Robotic Assisted Procedure of Trunk Region, Percutaneous Endoscopic Approach (ICD-10-PCS; 2024-08-14)
PROC: 0DQ84ZZ Repair Small Intestine, Percutaneous Endoscopic Approach (ICD-10-PCS; 2024-08-14)
PROC: 0DB84ZZ Excision of Small Intestine, Percutaneous Endoscopic Approach (ICD-10-PCS; principal; 2024-08-14 11:40)
DX: C20 Malignant neoplasm of rectum (principal); N17.9 Acute kidney failure, unspecified; I10 Essential (primary) hypertension; E03.9 Hypothyroidism, unspecified; E66.01 Morbid (severe) obesity due to excess calories; D64.9 Anemia, unspecified; K66.0 Peritoneal adhesions (postprocedural) (postinfection); Z82.3 Family history of stroke; Z82.0 Family history of epilepsy and other diseases of the nervous system; Z68.36 Body mass index [BMI] 36.0-36.9, adult
CPT/HCPCS: 36415; 45330; 80048; 80053; 82948; 83036; 83735; 85025; 85610; 85730; 86850; 86900; 86901; 88307; 88309; 93005; A4344; A4450; G0378; J0360; J1100; J1335; J1650; J2003; J2250; J2270; J2405; J2704; J2710; J2765; J3010; J3490; J7030; J7120; A4215; A4216; A4221; A4222; A4223; A4649; A4663; A4930; A6260; C1769; J0665